=== PATIENT | male | born 1960 ===

== ENCOUNTER 2023-12-31 04:13 | Day surgery (SDC) | payer BC ==
[2023-12-26 16:38] VITALS: BMI 38.7
[2023-12-31] MEDS ORDERED: MIDAZOLAM HCL 2 MG/2 ML SINGLE DOSE VIAL ONE (11:40)
[2023-12-31] MEDS ORDERED: PROPOFOL 20 ML ONE (11:40)
[2023-12-31] MEDS: ceFAZolin SODIUM 1 GM VIAL IVPB ONE (11:52)
[2023-12-31] MEDS ORDERED: DEXAMETHASONE SOD PHOSPHATE 4 MG/1 ML VIAL ONE (12:04)
[2023-12-31] MEDS ORDERED: KETOROLAC TROMETHAMINE 30 MG/1 ML VIAL ONE (12:04)
[2023-12-31] MEDS ORDERED: ONDANSETRON 4 MG/2 ML VIAL ONE (12:04)
[2023-12-31] MEDS ORDERED: ceFAZolin SODIUM 1 GM VIAL ONE (12:04)
[2023-12-31] MEDS ORDERED: ePHEDrine SULFATE 50 MG/1 ML AMPULE ONE (12:04)
[2023-12-31] MEDS ORDERED: GLYCOPYRROLATE 0.2 MG/1 ML VIAL ONE (12:13)
[2023-12-31] MEDS ORDERED: ONDANSETRON 4 MG/2 ML VIAL IVPUSH PRN (12:58)
[2023-12-31] MEDS: LACTATED RINGERS SOLUTION 1,000 ML IV SCH (13:02)
[2023-12-31] MEDS ORDERED: ACETAMINOPHEN INJECTION 100 ML IVPB ONE (13:21)
[2023-12-31] MEDS: ACETAMINOPHEN 1000 MG/100 ML BAG IVPB ONE (13:23)
[2023-12-31 15:07] VITALS: BP 119/75; PULSE 58; RESP 16; TEMP 97.3
== END 2023-12-31 15:26 | disposition home or self-care (01) ==
LOC: JASU-SURG 04:13
PROVIDERS: ATTEND Urology
PROC: 0TC48ZZ Extirpation of Matter from Left Kidney Pelvis, Via Natural or Artificial Opening Endoscopic (ICD-10-PCS; principal; 2023-12-31 12:00)
PROC: 0T778DZ Dilation of Left Ureter with Intraluminal Device, Via Natural or Artificial Opening Endoscopic (ICD-10-PCS; 2023-12-31 12:00)
DX: N20.0 Calculus of kidney (principal)
CPT/HCPCS: 76000-TC-FY; 94760; J0131